=== PATIENT | female | born 1955 | race Caucasian/White ===

== ENCOUNTER 2016-09-28 11:12 | Inpatient (IN) | payer SELFPAY ==
[2016-09-28] MEDS ORDERED: ACETAMINOPHEN 325 MG TABLET PO ONE (11:39)
--- OUTSIDE RECORDS SUMMARY | 2016-09-28 11:45 | XMS REPORT | Continuity of Care Document ---
:1955 Demographics Phone Unavailable Preferred Language Unknown Marital Status Unknown Uatsdin Affiliation Unknown Race Unknown Ethnic Group Unknown Author Organization [facility] ([facility]) [place] [address] Phone [phone] Care Team Providers Name Role Phone Unavailable Primary Care Provider Unavailable Source Comments This disclosure is being made pursuant to the Care Everywhere program, applicable federal and state laws, and may not contain all informaitonavailable regarding this patient.[facility] ([facility]) Active Allergies and Adverse Reactions Not on File Current Medications Not on file Active Problems Not on file Most Recent Encounters Date Type Specialty Providers Description 09/20/2016 Lab Requisition Pathology [facility], [facility] [place] Dx: Basal cell carcinoma of skin of left upper limb, including shoulder 08/09/2016 Lab Requisition Pathology [facility], [facility] Dx: Neoplasm of uncertain behavior of skin Social History Tobacco Use Types Packs/Day Years Used Date Never Assessed Plan of Care Health Maintenance Due Date Last Done Comments HCV Screening 1955 Hepatitis B Vaccine (1 of 3 - Primary Series) 1955 Tdap Vaccine 1967 Lipid Disorder Screening 1974 MMR Vaccine 1974 Td Vaccine 1974 Pneumococcal Vaccine (1 of 3 - PCV13) 1975 Cervical Cancer Screening 1986 Mammogram 1996 Colonoscopy 2006 Zoster Vaccine 2016 Influenza Vaccine: Seasonal (Season Ended) 2016 Results from Last 3 Months DERMATOPATHOLOGY EXAM (09/18/2016 11:07 AM)Only the most recent of2 resultswithin the time period is included. Component Value Range Case Report Surgical Pathology Case: [id number] Authorizing Provider:[facility], [facility] Collected: 09/18/2016 11:07 AM Pathologist: Bettie Valdovinos MD Received:09/20/2016 01:57 PM Specimen:Skin, other, specify, Left lateral elbow Diagnosis Skin, left lateral elbow, excision: Scar and changes consistent with prior procedure. Residual basal cell carcinoma, margins uninvolved. I have personally reviewed this case and edited the report as necessary. Clinical Information Tissue source/site: A. Left lateral elbow. Pertinent clinical history and findings: A. 2 cm residual lesion s/p biopsy. Clinical differential diagnosis: A. BCC. Gross Description A.Received in formalin, in a container labeled Jovita Mcdonald V, date of , and "Left lateral elbow", is a 4.8 x 1.6 cm oriented , elliptical, cohen, wrinkled portion of skin excised to a depth o f 0.9 cm with a suture marked per the requisition "superior tip of specimen" and is redesignated 12 o'clock.There is a 1.2 x 1.0 cm irregular, cohen-white , moderately well healed previous surgical d efect located 2.0 cm from the 12 o'clock tip, 0.5 cm from the 3 o'clock margin, 2.1 cm from the 6 o'clock tip and 0.4 cm from the 9 o'clock margin. The specimen is differentially inked 12-3-6 o'clock blue and 6-9-12 o'clock orange.The specimen is serially sectioned from 12 o'clock to 6 o'clock to reveal smooth, cohen-white, fibrous cut surfaces. No discrete deep invasion is grossly identified. [employer] Press Operator sections are submitted as labeled: A1:Tips, 12 o'clock tip inked purple A2-A4:Central cross sections, sequentially submitted from 12 o'clock to 6 o'clock, to include the entire previous surgical defect ATC/rls Microscopic Description Sections show skin excision that demonstrates central epidermal attenuation overlying horizontal dermal fibrosis and scattered chronic inflammation.There is overlying erosion of the epidermis. The re is a proliferation of atypical basaloid epithelial cells with peripheral palisading extending into the dermis. Epidermal attachment is present. Margins are not involved. Performed by:Thania Younger MD, R4/rls Specimen Skin - Skin, other, specify
[2016-09-28 11:48] LABS: Hematocrit 35.1 % (37.0-47.0); Hemoglobin 12.4 gm/dL (12.5-16.0); Mean Cell Volume 87.3 fl (78-100); Mean Corpuscular Hemoglobin 30.8 pg (27-31); Mean Corpuscular Hgb Conc 35.3 g/dl (32-36); Mean Platelet Volume 8.9 fl (6.0-9.5); Platelet Count 214 K/mm3 (150-450); Red Blood Count 4.02 M/mm3 (4.2-5.4); Red Cell Distribution Width 13.2 % (11.5-14.0); White Blood Count 8.2 K/mm3 (4.0-10.5)
[2016-09-28 11:55] LABS: Total Cells Counted 100
[2016-09-28 12:02] LABS: Albumin * 3.5 gm/dl (3.4-5.0); Anion Gap 19.4 mmol/L (6.8-13.8); Bilirubin, Total 0.3 mg/dL (0.0-1.1); Ca. Corrected For Albumin 8.9 mg/dL (8.4-10.2); Calcium * 8.8 mg/dL (7.9-10.9); Carbon Dioxide 18.8 mmol/L (24-32.6); Potassium 4.2 mmol/L (3.4-4.6); Total Protein 7.1 gm/dL (6.2-8.2)
[2016-09-28] MEDS ORDERED: NORMAL SALINE 1,000 ML IV ONE ×2 (12:15→14:59)
[2016-09-28 12:34] LABS: Band 17 % (0-2.0); Lymphocyte 8 % (20-51); Monocyte 3 % (0-9); Neutrophil 72 % (42-75); Neutrophil # 5.9 K/mm3 (1.3-6.0); Platelet Estimate Normal (NORMAL); RBC Morphology Normal (NORMAL)
--- OUTSIDE RECORDS SUMMARY | 2016-09-28 12:53 | XMS REPORT | Continuity of Care Document ---
:1955 Demographics Phone Unavailable Preferred Language Unknown Marital Status Unknown Orthodox Affiliation Unknown Race Unknown Ethnic Group Unknown Author Organization [facility] ([facility]) [place] [address] Phone [phone] Care Team Providers Name Role Phone Unavailable Primary Care Provider Unavailable Source Comments This disclosure is being made pursuant to the Care Everywhere program, applicable federal and state laws, and may not contain all informaitonavailable regarding this patient.[facility] ([facility]) Active Allergies and Adverse Reactions Not on File Current Medications Not on file Active Problems Not on file Most Recent Encounters Date Type Specialty Providers Description 09/20/2016 Lab Requisition Pathology Lab Services, [facility] Dx: Basal cell carcinoma of skin of left upper limb, including shoulder 08/09/2016 Lab Requisition Pathology Lab Services, [facility] Dx: Neoplasm of uncertain behavior of skin [...] Value Range Case Report Surgical Pathology Case: [id number] Authorizing Provider:Lab Services, [facility] Collected: 09/18/2016 11:07 AM Pathologist: Bettie Valdovinos [...] No discrete deep invasion is grossly identified. [employer]otive Parts Counter Assistant sections are submitted as labeled: A1:Tips, 12 [...]
--- NOTE | 2016-09-28 12:55 | ERNOTE ---
Medical Problem HPI - General Chief Complaint: Fever Time Seen by Provider: 09/28/16 11:35 Source: patient Exam Limitations: no limitations - Immun/Allergies/Home Medications Immunizations: IMMUNIZATION HX Immunizations Up to Date Yes History of Influenza Vaccine No Hx Pneumococcal Vaccination No Allergies/Adverse Reactions: Allergies No Known Allergies Allergy (Unverified 03/06/15 13:33) Home Medications: HOME MEDICATIONS Lisinopril [Zestril] 10 mg PO DAILY 03/06/15 [Last Taken Unknown] Simvastatin [Zocor] 20 mg PO HS 03/06/15 [Last Taken Unknown] - History of Present History Narrative: patient states she has had a fever and not feeling well. Denies any sore throat , cough or dysuria, only high fevers as high as 105 at home for two days She recently had a neoplasm removed from her left forearm on September 18, 2016. Review of Systems - Review of Systems Constitutional: Present: weakness, fatigue, malaise EYE: Present: no symptoms reported ENT: Present: no symptoms reported Respiratory: Present: no symptoms reported Cardiology: Present: no symptoms reported Gastrointestinal/Abdominal: Present: no symptoms reported Genitourinary: Present: no symptoms reported Musculoskeletal: Present: no symptoms reported Skin: Present: other - pt complains of itching Neurological: Present: no symptoms reported Endocrine: Present: no symptoms reported - Patient's Past Medical History Patient History - Medical: No pertinent hx Patient History - Cardiac/Respiratory: No pertinent hx Patient History - Cancer: Skin Patient History - Surgical Procedures: Other Patient History - Other: None - Social History Living Situations: alone Abuse History: No History of abuse Psych History: No pertinent hx Smoking Status: Never smoker Have you smoked in the past 12 months: No Alcohol Use: none Drug Use: none - Immunizations Immunizations Up to Date: Yes Hx Pneumococcal Vaccination: No History of Influenza Vaccine: No Physical Exam - Physical Exam General Appearance: Present: alert, other - pt appears tired and fatigued and dehydrated with dry mouth. Ears, Nose, Throat: Present: normal pharynx, dry mucous membranes Neck: Present: normal inspection, nontender, full range of motion Respiratory: Present: no respiratory distress, normal breath sounds, no accessory muscle use, chest nontender, lungs clear Cardiovascular/Chest: Present: regular rate, rhythm, no murmur, normal peripheral pulses Gastrointestinal/Abdominal: Present: normal bowel sounds, nontender, nondistended, soft, no organomegaly Back Exam: Present: normal inspection, normal range of motion Extremity Exam: Present: normal inspection, non-tender, normal range of motion, no edema Neurological Exam: Present: alert, oriented, normal mood/affect, no motor/ sensory deficits Skin Exam: Present: other - pt's skin appears red but she does have a fever ED Progress - Results and Orders Patient's Lab Results:: I have reviewed the patient's lab results. - Vital Signs Patient's Vital Signs:: I have reviewed the patient's vital signs. Vital Signs: Vital Signs 09/28/16 09/28/16 09/28/16 11:25 12:00 12:30 Temperature 38.3 C H 37.7 C H 36.6 C Pulse Rate 129 H 123 H 109 H Respiratory 24 H 16 16 Rate Blood Pressure 99/49 97/48 112/67 O2 Sat by Pulse 97 98 95 Oximetry - X-Ray X-Ray #1 X-Ray: chest - Progress/Reassessment Chief Complaint: Fever Plan - Plan Plan: pt's Lactate is 4.3, this patient needs to be admitted for sepsis and investigated and monitored, CXR does not show any acute pulmonary findings Departure - Departure Clinical Impression: Sepsis Qualifiers: Sepsis type: sepsis due to unspecified organism Qualified Code(s): A41.9 - Sepsis, unspecified organism Disposition: [facility] Condition: Fair
[2016-09-28] MEDS ORDERED: LEVOFLOXACIN/D5W 500 MG/100 ML BAG IV SCH (13:00)
[2016-09-28 13:02] LABS: Urine Bilirubin 1 mg/dl (NEGATIVE); Urine Ketone Negative (NEGATIVE); Urine Nitrite Negative (NEGATIVE); Urine Protein 30 mg/dL (NEGATIVE); Urine Specific Gravity 1.025 SP.GR. (1.005-1.010); Urine Urobilinogen Normal (NORMAL)
[2016-09-28 13:25] LABS: Urine Appearance Slightly Cloudy; Urine Blood 5 /ul (NEGATIVE); Urine Color Yellow
[2016-09-28 13:26] LABS: Urine Amorphous Sediment Moderate - 2+ (NONE-FEW); Urine Bacteria TRACE; Urine Hyaline Cast 0-5 /LPF; Urine WBC 0-5 /hpf (0-5)
[2016-09-28] MEDS ORDERED: ACETAMINOPHEN 325 MG TABLET PO PRN (14:33)
[2016-09-28] MEDS ORDERED: PIPERACILLIN SODIUM/TAZOBACTAM 2.25 GM VIAL IV SCH (15:15)
--- NOTE | 2016-09-28 15:24 | HP ---
Chief Complaint - Chief Complaint Date of Service: 09/28/16 Time of Service: 15:09 Chief Complaint: Fever of 105F History of Present Illness: The patient is a 61-year-old female who presents to the [facility] emergency department with a chief complaint of fever and states that her temperature was 105F this morning prior to coming to the emergency department. The emergency department physician called me to admit the patient for "sepsis with an unknown source" and stated that she did not feel the patient's presentation was at all related to her recent skin cancer removal from her left forearm. However, within seconds of interviewing the patient and her family, it was quite obvious that the patient has sepsis secondary to a left upper extremity surgical site infection. The patient had excision of a skin cancer from her left forearm on 09/19/2015 by [facility]. The patient is unsure what type of skin cancer it was. The patient had a postoperative follow-up appointment with Jenn Schafer on 09/22/2016. The patient states that at that visit there was concern for infection and she was started on Bactrim. The patient had another postoperative follow-up appointment with Jenn Schafer yesterday on 09/27/2016 and at that point in time she was given a prescription for Keflex and instructed to continue taking the Bactrim along with the new prescription for Keflex. The patient states she had not yet picked up Keflex and thus has not taken any doses of this medication. She has however remained on Bactrim. The patient states that since surgery she has had intermittent and varying degrees of redness as well as drainage from the surgical site. Despite being on oral antibiotics, the patient states she started having fevers approximately 2 days ago and then when her temperature reached 105F this morning she decided to come to the emergency department for further evaluation. - Patient's Past Medical History Patient History - Medical: Other - Psoriasis Patient History - Cardiac/Respiratory: Hypertension, Hyperlipidemia Patient History - Cancer: Skin Patient History - Surgical Procedures: Other Patient History - Other: None - Family History Father Family History - Medical: Family History - Cardiac/Respiratory: Myocardial Infarction - [place] at age 75 Mother Family History - Medical: Alzheimer's Disease Family History - Cardiac/Respiratory: Hypertension - Social History Living Situations: alone Abuse History: No History of abuse Psych History: No pertinent hx Smoking Status: Never smoker Have you smoked in the past 12 months: No Do you dip or chew tobacco: No Patient requests Smoking Cessation Consult: No Initiate information on Smoking Cessation: No Alcohol Use: none Drug Use: none - Immunizations Immunizations Up to Date: Yes Hx Pneumococcal Vaccination: No History of Influenza Vaccine: No Review Of Systems (GEN) - Review of Systems Generalized/Overall Review: Present: Weakness, Chills, Fever, Malaise, Diaphoresis, Fatigue EENTM: Present: No Symptoms Reported Respiratory: Present: No Symptoms Reported Cardiac: Present: No Symptoms Reported Abdominal: Present: No Symptoms Reported Genitourinary: Present: No Symptoms Reported Musculoskeletal: Present: No Symptoms Reported Neurological: Present: No Symptoms Reported Skin: Present: Change in Color, Other - Bright red skin, swelling and redness over left arm, generalized itching Endocrine: Present: No Symptoms Reported Misc: All systems neg except as marked Immunizations: IMMUNIZATION HX Immunizations Up to Date Yes History of Influenza Vaccine No Hx Pneumococcal Vaccination No Allergies/Adverse Reactions: Allergies Allergy/AdvReac Type Severity Reaction Status Date / Time No Known Allergies Allergy Unverified 03/06/15 13:33 Home Medications: HOME MEDICATIONS Simvastatin [Zocor] 20 mg PO HS 03/06/15 [Last Taken Unknown] Lisinopril [Prinivil] 20 mg PO DAILY 09/28/16 [Last Taken Unknown] Exam - Exam Vital Signs: Vital Signs - Last Taken Temp 36.6 C 09/28/16 13:59 Pulse 105 H 09/28/16 13:59 Resp 16 09/28/16 13:59 BP 109/49 09/28/16 13:59 Pulse Ox 99 09/28/16 13:59 Constitutional: Present: Alert, Oriented x3, Cooperative, Mild distress - Appears uncomfortable, Obese ENT Exam: Present: hearing grossly normal, dry mucous membranes Eye Exam: bilateral eye: normal inspection, EOMI Respiratory: Present: lungs clear, normal breath sounds, no respiratory distress , no accessory muscle use Cardiovascular/Chest: Present: no edema, tachycardia Abdomen: Present: Normal bowel sounds, soft, nontender, nondistended Extremity: Present: normal range of motion, normal inspection - other than left UE which is described in the skin exam section, no pedal edema Skin Exam: Present: warm/dry, other - Diffuse redness and increased warmth. Left UE: s/p skin cancer removal to the dorsal aspect of forearm with sutures in place, arm is edematous with errythema, no active drainage Lymphatic: Present: axilla node tender (L) Neurologic: Present: no motor/sensory deficits, alert, normal mood/affect, oriented x 3 Appearance: Present: appropriate appearance, appropriate insight, neat, no memory impairment Eye contact: Present: cooperative, good eye contact, normal speech Thoughts: Present: normal thought pattern, no apparent hallucination Diagnostic Studies: Abnormal Lab Results 09/28/16 Range/Units 12:50 Urine Protein 30 H (NEGATIVE) mg/dL Urine Blood 5 H (NEGATIVE) /ul Urine Bilirubin 1 H (NEGATIVE) mg/dl Urine RBC 5-10 H (0-5) /hpf Ur Epithelial Cells 10-25 H (0-5) /hpf Amorphous Sediment Moderate - 2+ H (NONE-FEW) Hyaline Casts 0-5 H (NONE) /LPF Laboratory Results WBC 8.2 K/mm3 (4.0-10.5) 09/28/16 11:45 RBC 4.02 M/mm3 (4.2-5.4) L 09/28/16 11:45 Hgb 12.4 gm/dL (12.5-16.0) L 09/28/16 11:45 Hct 35.1 % (37.0-47.0) L 09/28/16 11:45 MCV 87.3 fl (78-100) 09/28/16 11:45 MCH 30.8 pg (27-31) 09/28/16 11:45 MCHC 35.3 g/dl (32-36) 09/28/16 11:45 RDW 13.2 % (11.5-14.0) 09/28/16 11:45 Plt Count 214 K/mm3 (150-450) 09/28/16 11:45 MPV 8.9 fl (6.0-9.5) 09/28/16 11:45 Neutrophils % (Manual) 72 % (42-75) 09/28/16 11:45 Band Neuts % (Manual) 17 % (0-2.0) H 09/28/16 11:45 Lymphocytes % (Manual) 8 % (20-51) L 09/28/16 11:45 Monocytes % (Manual) 3 % (0-9) 09/28/16 11:45 Neutrophils # (Manual) 5.9 K/mm3 (1.3-6.0) 09/28/16 11:45 Lymphocytes # (Manual) 0.7 k/mm3 (1.5-3.5) L 09/28/16 11:45 Monocytes # (Manual) 0.2 k/mm3 (0.0-1.0) 09/28/16 11:45 Platelet Estimate Normal (NORMAL) 09/28/16 11:45 RBC Morphology Normal (NORMAL) 09/28/16 11:45 Sodium 135 mmol/L (132-142) 09/28/16 11:45 Plasma Sodium 136 mmol/L (130-142) 09/28/16 11:45 Potassium 4.2 mmol/L (3.4-4.6) 09/28/16 11:45 Chloride 101 mmol/L (97-106) 09/28/16 11:45 Carbon Dioxide 18.8 mmol/L (24-32.6) L 09/28/16 11:45 Anion Gap 19.4 mmol/L (6.8-13.8) H 09/28/16 11:45 BUN 27 mg/dL (3-23) H D 09/28/16 11:45 Creatinine 2.71 mg/dL (0.4-1.4) H D 09/28/16 11:45 Est GFR (Non-Af Amer) 19 mL/min (60-130) L D 09/28/16 11:45 BUN/Creatinine Ratio 10.0 (9.0-21.6) 09/28/16 11:45 Random Glucose 169 mg/dL (70-110) H 09/28/16 11:45 Lactic Acid, Venous 4.3 mmol/L (0.4-1.9) H* 09/28/16 11:45 Calcium 8.8 mg/dL (7.9-10.9) 09/28/16 11:45 Calcium Adj for Albumin 8.9 mg/dL (8.4-10.2) 09/28/16 11:45 Total Bilirubin 0.3 mg/dL (0.0-1.1) 09/28/16 11:45 AST 41 U/L (0-48) 09/28/16 11:45 ALT 62 U/L (19-67) 09/28/16 11:45 Alkaline Phosphatase 67 U/L (50-170) 09/28/16 11:45 Total Protein 7.1 gm/dL (6.2-8.2) 09/28/16 11:45 Albumin 3.5 gm/dl (3.4-5.0) 09/28/16 11:45 Procalcitonin 4.00 ng/mL (0.05-0.50) H 09/28/16 11:45 Urine Color Yellow 09/28/16 12:50 Urine Appearance Slightly cloudy 09/28/16 12:50 Urine pH 6.0 pH (5.0-7.0) 09/28/16 12:50 Ur Specific [place] 1.025 SP.GR. (1.005-1.010) 09/28/16 12:50 Urine Protein 30 mg/dL (NEGATIVE) H 09/28/16 12:50 Urine Glucose (UA) Negative mg/dL (NEGATIVE) 09/28/16 12:50 Urine Ketones Negative mg/dL (NEGATIVE) 09/28/16 12:50 Urine Blood 5 /ul (NEGATIVE) H 09/28/16 12:50 Urine Nitrate Negative (NEGATIVE) 09/28/16 12:50 Urine Bilirubin 1 mg/dl (NEGATIVE) H 09/28/16 12:50 Urine Ictotest Negative (NEGATIVE) 09/28/16 12:50 Prot Sulfosalicylic Acd 1+ mg/dL (0) 09/28/16 12:50 Urine Urobilinogen Normal EU/dl (NORMAL) 09/28/16 12:50 Ur Leukocyte Esterase Negative /ul (NEGATIVE) 09/28/16 12:50 Urine RBC 5-10 /hpf (0-5) H 09/28/16 12:50 Urine WBC 0-5 /hpf (0-5) 09/28/16 12:50 Ur Epithelial Cells 10-25 /hpf (0-5) H 09/28/16 12:50 Amorphous Sediment Moderate - 2+ (NONE-FEW) H 09/28/16 12:50 Urine Bacteria Trace (NONE) 09/28/16 12:50 Hyaline Casts 0-5 /LPF (NONE) H 09/28/16 12:50 Urine Culture Comments Culture to follow 09/28/16 12:50 Assessment/Plan - Narrative Narrative: IMPRESSION & PLAN: Sepsis secondary to left forearm surgical site infection -Admit to [facility], inpatient status -Hypotension and tachycardia on admission secondary to sepsis -Bolus 3 L of NS followed by NS @ 150cc/hr -Discontinue IV Levaquin which was started in the emergency department. Start IV vancomycin and IV Zosyn, both of which will be renally dosed and I have asked pharmacy to manage dosing of these antibiotics. -Tylenol for fevers -Benadryl for generalized itching -No active drainage at the surgical site at this time. Order placed for a wound culture and I discussed with the patients nurse that if there is any drainage noted to please have this sent to lab for culture. -Blood cultures X 2 pending -I will ask our nurse practitioner car body mechanic to complete a 6 hour follow-up sepsis evaluation. -Case discussed with Jenn Schafer from [facility]. Unfortunately, Dr[place] Romero [place] and therefore they are not doing any inpatient consults at this time. -If patient fails to improve with plan as above, I will get a CT of her left upper extremity for evaluation of possible abscess. -UA completed in the emergency department is contaminated as evidenced by 10- 25 epithelial cells. Lab was called and instructed that there is no urine culture necessary. Acute kidney injury -Secondary to sepsis -Continue IV fluids as discussed above -Recheck BMP in the morning -Renally dose all medications and avoid nephrotoxic medications as able. -Hold home Lisinopril Hyperlactatemia -Secondary to hypoperfusion due to sepsis. Follow-up lactic acid level still elevated but improved from the first. Continue IV fluid as discussed above and recheck a lactic acid level in the morning. CHRONIC MEDICAL CONDITIONS: Essential hypertension: Patient hypotensive and an ANDERSON on admission and therefore her lisinopril is being held. Hyperlipidemia: Continue home simvastatin. VTE PROPHYLAXIS: Heparin (due to ANDERSON), compression stockings CODE STATUS: Full code
[2016-09-28] MEDS: diphenhydrAMINE HCL 50 MG/ML VIAL IV PRN ×2 (15:26→20:34)
[2016-09-28] MEDS ORDERED: PIPERACILLIN SODIUM/TAZOBACTAM 2.25 GM in DEXTROSE 5 % IN WATER 100 ML IV SCH ×2 (15:30)
[2016-09-28] MEDS: HEPARIN SODIUM,PORCINE 5,000 UNITS/ML VIAL SC SCH (15:43)
[2016-09-28] MEDS: PIPERACILLIN SODIUM/TAZOBACTAM 2.25 GM in DEXTROSE 5 % IN WATER 100 ML IV SCH ×4 (15:44→22:43)
[2016-09-28] MEDS ORDERED: VANCOMYCIN HCL 1 GM in DEXTROSE 5 % IN WATER 250 ML IV SCH ×2 (16:30)
[2016-09-28] MEDS: NORMAL SALINE 1,000 ML IV PRN ×2 (18:11→23:49)
[2016-09-28] MEDS: SIMVASTATIN 20 MG TABLET PO SCH (20:30)
--- NOTE | 2016-09-28 21:34 | PN ---
Progess Note - Interim Narrative: 09/28/16 21:16 Pt examined. She is alert, oriented & in no distress but was starting to develop chills. The patient came to the [facility] ER with a C/C of fever as high as 105F the morning on day of presentation to the ED. She was found to have Sepsis secondary to a left upper extremity surgical site infection. The patient had excision of a skin cancer from her left forearm on 09/19/2015 by [facility]. The patient is unsure what type of skin cancer it was. The patient had a postoperative follow-up appointment with Jenn Schafer on 2016 and was started on Bactrim on that visit as there was concern for infection. She had another postoperative follow-up appointment with Jenn Schafer 09/27/2016 and she was given a prescription for Keflex and instructed to continue taking the Bactrim along with the new prescription for Keflex. On admission, she was treated according to sepsis protocol: Aggresive IVF hydration , Broad Spectrum antibiotics ( Vancomycin & Zosyn) Serum Lactate monitoring. 09/28/16 09/28/16 11:45 14:50 Lactic Acid, Venous 4.3 H* 2.2 H* Sepsis Reassessment Note Time:: 21:15 Narrative: Last Vital Signs Temp 36.9 C 09/28/16 19:47 Pulse 107 H 09/28/16 19:47 Resp 16 09/28/16 19:47 BP 104/55 09/28/16 19:47 Pulse Ox 97 09/28/16 19:47 Vitals reviewed: Yes Heart Sounds: S1 & S2, Regular Breath Sounds: Clear Peripheral Pulse: Radial Peripheral Pulse Strength: Normal Additional Peripheral Pulse: Pedal Additional Peripheral Pulse Strength: Normal Capillary Refill: < 3 seconds Skin Color/Condition: Warm - Flushed, Dry
[2016-09-28] MEDS: ACETAMINOPHEN 500 MG TABLET PO PRN (22:42)
[2016-09-29] MEDS: HEPARIN SODIUM,PORCINE 5,000 UNITS/ML VIAL SC SCH ×2 (03:03→14:57)
[2016-09-29 05:46] LABS: Hematocrit 30.4 % (37.0-47.0); Hemoglobin 10.8 gm/dL (12.5-16.0); Mean Cell Volume 87.1 fl (78-100); Mean Corpuscular Hemoglobin 30.9 pg (27-31); Mean Corpuscular Hgb Conc 35.5 g/dl (32-36); Mean Platelet Volume 9.2 fl (6.0-9.5); Platelet Count 167 K/mm3 (150-450); Red Blood Count 3.49 M/mm3 (4.2-5.4); Red Cell Distribution Width 13.3 % (11.5-14.0); White Blood Count 5.6 K/mm3 (4.0-10.5)
[2016-09-29 05:47] LABS: Total Cells Counted 100
[2016-09-29 06:05] LABS: Anion Gap 16.4 mmol/L (6.8-13.8); Calcium * 7.1 mg/dL (7.9-10.9); Carbon Dioxide 18.5 mmol/L (24-32.6); Estimated Creat Clear 40.5; Potassium 3.9 mmol/L (3.4-4.6)
[2016-09-29 06:06] LABS: Band 29 % (0-2.0); Dohle Bodies 2+; Eosinophil 1 % (0-3); Lymphocyte 8 % (20-51); Monocyte 1 % (0-9); Neutrophil 60 % (42-75); Neutrophil # 3.4 K/mm3 (1.3-6.0); Platelet Estimate Normal (NORMAL); Toxic Granulation Trace
[2016-09-29] MEDS: NORMAL SALINE 1,000 ML IV PRN ×3 (06:32→20:20)
[2016-09-29] MEDS: PIPERACILLIN SODIUM/TAZOBACTAM 2.25 GM in DEXTROSE 5 % IN WATER 100 ML IV SCH ×2 (06:33)
[2016-09-29] MEDS: diphenhydrAMINE HCL 50 MG/ML VIAL IV PRN ×2 (06:53→14:57)
[2016-09-29] MEDS: VANCOMYCIN HCL 0.75 GM in DEXTROSE 5 % IN WATER 250 ML IV SCH ×4 (10:40→20:30)
[2016-09-29] MEDS: ACETAMINOPHEN 500 MG TABLET PO PRN (14:57)
[2016-09-29] MEDS: PIPERACILLIN SODIUM/TAZOBACTAM 3.375 GM in DEXTROSE 5 % IN WATER 100 ML IV SCH ×4 (14:57→22:38)
--- NOTE | 2016-09-29 15:02 | PN ---
Subjective - Date and Time Seen Date: 09/29/16 Time: 08:20 Subjective Narrative: Patient seen and examined at bedside this AM. No acute issues overnight. Patient admits to feeling better this AM. Still somewhat itchy and red skin but improving. Objective - Review of Systems Generalized/Overall Review: Reports: Weakness, Chills, Fever, Malaise, Diaphoresis, Fatigue EENTM: Reports: No Symptoms Reported Respiratory: Reports: No Symptoms Reported Cardiac: Reports: No Symptoms Reported Abdominal: Reports: No Symptoms Reported Genitourinary Symptoms: Reports: No Symptoms Reported Musculoskeletal Complaints: Reports: No Symptoms Reported Neurological: Reports: No Symptoms Reported Skin: Reports: Other - Red skin, swelling and redness over left arm, generalized skin itching Endocrine: Reports: No Symptoms Reported Misc: All systems neg except as marked - Vitals Vitals: Last Vital Signs Temp 36.7 C 09/29/16 10:35 Pulse 117 H 09/29/16 10:35 Resp 20 09/29/16 10:35 BP 103/57 09/29/16 10:35 Pulse Ox 96 09/29/16 10:35 - Abnormal Lab Findings Abnormal Lab Findings: Abnormal Lab Results 09/28/16 09/29/16 09/29/16 Range/Units 14:50 05:40 05:40 RBC 3.49 L (4.2-5.4) M/mm3 Hgb 10.8 L (12.5-16.0) gm/dL Hct 30.4 L (37.0-47.0) % Band Neuts % (Manual) 29 H (0-2.0) % Lymphocytes % (Manual) 8 L (20-51) % Lymphocytes # (Manual) 0.4 L (1.5-3.5) k/mm3 Carbon Dioxide 18.5 L (24-32.6) mmol/L Anion Gap 16.4 H (6.8-13.8) mmol/L Est GFR (Non-Af Amer) 43 L D (60-130) mL/min Lactic Acid, Venous 2.2 H* (0.4-1.9) mmol/L Calcium 7.1 L (7.9-10.9) mg/dL - Exam Constitutional: Present: Alert, Oriented x3, Cooperative, No distress, Middle aged, Obese ENT Exam: Present: hearing grossly normal, moist mucous membranes, other - Edentulous Respiratory: Present: lungs clear, normal breath sounds, no respiratory distress , no accessory muscle use Cardiovascular/Chest: Present: regular rate, rhythm, no edema Abdomen: Present: Normal bowel sounds, soft, nontender, nondistended Extremity: Present: non-tender, normal inspection - except left arm, no pedal edema Skin Exam: Present: other - Diffuse redness (improved from admission) and increased warmth. Left UE: s/p skin cancer removal to the dorsal aspect of forearm with sutures in place, arm is edematous with errythema, no active drainage Lymphatic: Present: axilla node tender (L) Neurologic: Present: no motor/sensory deficits, alert, normal mood/affect, oriented x 3 Appearance: Present: appropriate appearance, appropriate insight, neat, no memory impairment Eye contact: Present: cooperative, good eye contact, normal speech Thoughts: Present: normal thought pattern, no apparent hallucination Assessment/Plan Plan Narrative: IMPRESSION & PLAN: Sepsis secondary to left forearm surgical site infection -Admit to [facility], inpatient status -Hypotension and tachycardia on admission secondary to sepsis -Patient bolused 3 L of NS on admission. Continue IVF hydration with NS @ 75 -Continue IV vancomycin and IV Zosyn, both of which will be renally dosed and I have asked pharmacy to manage dosing of these antibiotics. -Tylenol for fevers -Benadryl for generalized itching -No active drainage at the surgical site at this time. Order placed for a wound culture and I discussed with the patients nurse that if there is any drainage noted to please have this sent to lab for culture. -Blood cultures X 2 preliminary report NGTD -Case discussed with Jenn Schafer from [facility]. Unfortunately, Dr[place] Romero [place] and therefore they are not doing any inpatient consults at this time. -If patient fails to improve with plan as above, I will get a CT of her left upper extremity for evaluation of possible abscess. -UA completed in the emergency department is contaminated as evidenced by 10- 25 epithelial cells. Lab was called and instructed that there is no urine culture necessary. Acute kidney injury - Resolved -Secondary to sepsis -Continue IV fluids as discussed above -Recheck BMP in the morning -Renally dose all medications and avoid nephrotoxic medications as able. -Hold home Lisinopril Hyperlactatemia -Resolved -Secondary to hypoperfusion due to sepsis. CHRONIC MEDICAL CONDITIONS: Essential hypertension: Patient hypotensive and in ANDERSON on admission and therefore her lisinopril was held. Continue to hold for now and resume if and when necessary. Hyperlipidemia: Continue home simvastatin. VTE PROPHYLAXIS: Patient treated with heparin (due to ANDERSON) on admission and once ANDERSON resolved the patient was transitioned to lovenox on 09/30/2016, compression stockings CODE STATUS: Full code DISPOSITION: Patient will likely remain on IV antibiotics over the weekend and we will hopefully be able to switch to PO on Sunday. Potential discharge early next week. - Problems/Diagnosis (1) Sepsis due to cellulitis Problem: Acute (2) Superficial incisional surgical site infection Problem: Acute (3) Deep incisional surgical site infection Problem: Suspected Narrative: Possible (4) Acute kidney injury Problem: Resolved (5) Essential hypertension Problem: Chronic (6) Hyperlipidemia Problem: Chronic
[2016-09-29] MEDS: SIMVASTATIN 20 MG TABLET PO SCH (20:21)
[2016-09-30 05:43] LABS: Hemoglobin 10.4 gm/dL (12.5-16.0); Mean Cell Volume 86.6 fl (78-100); Mean Corpuscular Hgb Conc 35.9 g/dl (32-36); Mean Platelet Volume 9.2 fl (6.0-9.5); Platelet Count 161 K/mm3 (150-450); Red Blood Count 3.35 M/mm3 (4.2-5.4); Red Cell Distribution Width 13.5 % (11.5-14.0); White Blood Count 6.8 K/mm3 (4.0-10.5)
[2016-09-30 05:45] LABS: Total Cells Counted 100
[2016-09-30 05:51] LABS: Anion Gap 11.9 mmol/L (6.8-13.8); BUN/Creatinine Ratio 12.2 (9.0-21.6); Calcium * 7.4 mg/dL (7.9-10.9); Carbon Dioxide 21.8 mmol/L (24-32.6); Estimated Creat Clear 59.8; Potassium 3.7 mmol/L (3.4-4.6)
[2016-09-30 05:59] LABS: Band 3 % (0-2.0); Lymphocyte 14 % (20-51); Monocyte 3 % (0-9); Neutrophil 80 % (42-75); Neutrophil # 5.4 K/mm3 (1.3-6.0); Platelet Estimate Normal (NORMAL); RBC Morphology Normal (NORMAL)
[2016-09-30] MEDS: PIPERACILLIN SODIUM/TAZOBACTAM 3.375 GM in DEXTROSE 5 % IN WATER 100 ML IV SCH ×6 (07:24→23:04)
[2016-09-30] MEDS: ENOXAPARIN SODIUM 40 MG/0.4 ML SYRG SC SCH (08:17)
[2016-09-30] MEDS: NORMAL SALINE 1,000 ML IV PRN (09:45)
[2016-09-30] MEDS: LACTOBACILLUS ACIDOPHILUS 100 CAP BTL PO SCH ×2 (09:58→20:31)
[2016-09-30] MEDS: VANCOMYCIN HCL 0.75 GM in DEXTROSE 5 % IN WATER 250 ML IV SCH ×4 (09:59→20:31)
--- NOTE | 2016-09-30 10:09 | PN ---
Subjective - Date and Time Seen Date: 09/30/16 Time: 10:02 Subjective Narrative: Patient seen and examined at bedside this AM. No acute issues overnight. Patient admits to feeling better this AM. Skin redness and itching markedly improved. Objective - Review of Systems Generalized/Overall Review: Reports: Chills, Fatigue. Denies: Fever EENTM: Reports: No Symptoms Reported Respiratory: Reports: No Symptoms Reported Cardiac: Reports: No Symptoms Reported Abdominal: Reports: No Symptoms Reported Genitourinary Symptoms: Reports: No Symptoms Reported Musculoskeletal Complaints: Reports: No Symptoms Reported Neurological: Reports: No Symptoms Reported Skin: Reports: Other - Swelling and pain improving in left arm Endocrine: Reports: No Symptoms Reported Misc: All systems neg except as marked - Vitals Vitals: Last Vital Signs Temp 37.1 C 09/30/16 06:50 Pulse 82 09/30/16 06:50 Resp 20 09/30/16 06:50 BP 98/57 09/30/16 06:50 Pulse Ox 97 09/30/16 06:50 - Abnormal Lab Findings Abnormal Lab Findings: Abnormal Lab Results 09/30/16 09/30/16 Range/Units 05:25 05:25 RBC 3.35 L (4.2-5.4) M/mm3 Hgb 10.4 L (12.5-16.0) gm/dL Hct 29.0 L (37.0-47.0) % Neutrophils % (Manual) 80 H (42-75) % Band Neuts % (Manual) 3 H (0-2.0) % Lymphocytes % (Manual) 14 L (20-51) % Lymphocytes # (Manual) 1.0 L (1.5-3.5) k/mm3 Chloride 109 H (97-106) mmol/L Carbon Dioxide 21.8 L (24-32.6) mmol/L Calcium 7.4 L (7.9-10.9) mg/dL - Exam Constitutional: Present: Alert, Oriented x3, Cooperative, No distress, Obese ENT Exam: Present: hearing grossly normal, moist mucous membranes, other - Edentulous Respiratory: Present: lungs clear, normal breath sounds, no respiratory distress , no accessory muscle use Cardiovascular/Chest: Present: regular rate, rhythm, no edema, no murmur Abdomen: Present: Normal bowel sounds, soft, nontender, nondistended Extremity: Present: normal inspection - except left upper extremity, no pedal edema Skin Exam: Present: other - Left upper extremity: s/p skin cancer removal to the dorsal aspect of forearm with sutures in place, edema and errythema markedly improved since admission, no active drainage Neurologic: Present: no motor/sensory deficits, alert, normal mood/affect, oriented x 3 Appearance: Present: appropriate appearance, neat, no memory impairment Eye contact: Present: cooperative Thoughts: Present: normal thought pattern, no apparent hallucination Assessment/Plan Plan Narrative: IMPRESSION & PLAN: Sepsis secondary to left forearm surgical site infection -Admit to [facility], inpatient status -Hypotension and tachycardia on admission secondary to sepsis -Patient bolused 3 L of NS on admission. Continue IVF hydration with NS @ 75 -Continue IV vancomycin and IV Zosyn, both of which will be renally dosed and I have asked pharmacy to manage dosing of these antibiotics. -Tylenol for fevers -Benadryl for generalized itching -No active drainage at the surgical site at this time. Order placed for a wound culture and I discussed with the patients nurse that if there is any drainage noted to please have this sent to lab for culture. -Blood cultures X 2 preliminary report NGTD -Case discussed with Jenn Schafer from [facility]. Unfortunately, Dr. Romero is out of the country and therefore they are not doing any inpatient consults at this time. -If patient fails to improve with plan as above, I will get a CT of her left upper extremity for evaluation of possible abscess. -UA completed in the emergency department is contaminated as evidenced by 10- 25 epithelial cells. Lab was called and instructed that there is no urine culture necessary. Acute kidney injury - Resolved -Secondary to sepsis -Continue IV fluids as discussed above -Recheck BMP in the morning -Renally dose all medications and avoid nephrotoxic medications as able. -Hold home Lisinopril Hyperlactatemia -Resolved -Secondary to hypoperfusion due to sepsis. CHRONIC MEDICAL CONDITIONS: Essential hypertension: Patient hypotensive and in ANDERSON on admission and therefore her lisinopril was held. Continue to hold for now and resume if and when necessary. Hyperlipidemia: Continue home simvastatin. VTE PROPHYLAXIS: Patient treated with heparin (due to ANDERSON) on admission and once ANDERSON resolved the patient was transitioned to lovenox on 09/30/2016, compression stockings CODE STATUS: Full code DISPOSITION: Patient will remain on IV antibiotics today and I will plan to switch to PO antibiotics tomorrow (10/01/2016) as long as the patient continues to have clinical improvement. Potential discharge on Sunday (10/02/2016). - Problems/Diagnosis (1) Sepsis due to cellulitis Problem: Acute (2) Superficial incisional surgical site infection Problem: Acute (3) Deep incisional surgical site infection Problem: Suspected (4) Acute kidney injury Problem: Resolved (5) Essential hypertension Problem: Chronic (6) Hyperlipidemia Problem: Chronic
[2016-09-30] MEDS: SIMVASTATIN 20 MG TABLET PO SCH (20:31)
[2016-10-01] MEDS: NORMAL SALINE 1,000 ML IV PRN (03:08)
[2016-10-01] MEDS: PIPERACILLIN SODIUM/TAZOBACTAM 3.375 GM in DEXTROSE 5 % IN WATER 100 ML IV SCH ×2 (07:19)
--- NOTE | 2016-10-01 08:04 | PN ---
Subjective - Date and Time Seen Date: 10/01/16 Time: 07:57 Subjective Narrative: Patient seen and examined at bedside this AM. No acute issues overnight. Patient continues to feel better each day. She denies any new issues or concerns this AM. Objective - Review of Systems Generalized/Overall Review: Reports: No Symptoms Reported EENTM: Reports: No Symptoms Reported Respiratory: Reports: No Symptoms Reported Cardiac: Reports: No Symptoms Reported Abdominal: Reports: No Symptoms Reported Genitourinary Symptoms: Reports: No Symptoms Reported Musculoskeletal Complaints: Reports: No Symptoms Reported Neurological: Reports: No Symptoms Reported Skin: Reports: Other - Left arm swelling, redness and pain all improving Endocrine: Reports: No Symptoms Reported Misc: All systems neg except as marked - Vitals Vitals: Last Vital Signs Temp 36.6 C 10/01/16 06:00 Pulse 70 10/01/16 06:00 Resp 20 10/01/16 06:00 BP 141/66 10/01/16 06:00 Pulse Ox 97 10/01/16 06:00 - Exam Constitutional: Present: Alert, Oriented x3, Cooperative, No distress, Obese ENT Exam: Present: hearing grossly normal, moist mucous membranes, other - Edentulous Respiratory: Present: lungs clear, normal breath sounds, no respiratory distress , no accessory muscle use Cardiovascular/Chest: Present: regular rate, rhythm, no edema, no murmur Abdomen: Present: soft, nontender, nondistended Extremity: Present: normal inspection - except left UE, no pedal edema, no calf tenderness Neurologic: Present: no motor/sensory deficits, alert, oriented x 3 Appearance: Present: appropriate appearance, no memory impairment Eye contact: Present: cooperative Thoughts: Present: normal thought pattern, no apparent hallucination Assessment/Plan Plan Narrative: IMPRESSION & PLAN: Sepsis secondary to left forearm surgical site infection -Admit to [facility], inpatient status -Hypotension and tachycardia on admission were secondary to sepsis and have since resolved. -Discontinue IV vancomycin and IV Zosyn. Transition to oral antibiotics - start Keflex 500mg PO BID and continue for 10 days. -Tylenol for fevers -Benadryl for generalized itching -No active drainage at the surgical site at this time. Order placed for a wound culture and I discussed with the patients nurse that if there is any drainage noted to please have this sent to lab for culture. -Blood cultures X 2 NGTD -Case discussed with Jenn Schafer from [facility]. Unfortunately, Dr. Romero is out of the country and therefore they are not doing any inpatient consults at this time. -If patient fails to improve with plan as above, I will get a CT of her left upper extremity for evaluation of possible abscess. -UA completed in the emergency department is contaminated as evidenced by 10- 25 epithelial cells. Lab was called and instructed that there is no urine culture necessary. Acute kidney injury - Resolved -Secondary to sepsis Hyperlactatemia -Resolved -Secondary to hypoperfusion due to sepsis CHRONIC MEDICAL CONDITIONS: Essential hypertension: Patient hypotensive and in ANDERSON on admission and therefore her lisinopril was held. She is now having elevated BPs so I will have the patient resume her home Lisinopril today. Hyperlipidemia: Continue home simvastatin. VTE PROPHYLAXIS: Patient treated with heparin (due to ANDERSON) on admission and once ANDERSON resolved the patient was transitioned to lovenox on 09/30/2016, compression stockings CODE STATUS: Full code DISPOSITION: Switch to PO antibiotics today (10/01/2016) and monitor clinical course. Potential discharge tomorrow (10/02/2016). - Problems/Diagnosis (1) Sepsis due to cellulitis Problem: Acute (2) Superficial incisional surgical site infection Problem: Acute (3) Deep incisional surgical site infection Problem: Suspected (4) Acute kidney injury Problem: Resolved (5) Essential hypertension Problem: Chronic (6) Hyperlipidemia Problem: Chronic
[2016-10-01] MEDS: LACTOBACILLUS ACIDOPHILUS 100 CAP BTL PO SCH ×2 (08:18→20:24)
[2016-10-01] MEDS: CEPHALEXIN MONOHYDRATE 500 MG CAPSULE PO SCH ×2 (08:18→20:24)
[2016-10-01] MEDS: LISINOPRIL 20 MG TABLET PO SCH (08:19)
[2016-10-01] MEDS: ENOXAPARIN SODIUM 40 MG/0.4 ML SYRG SC SCH (08:20)
[2016-10-01] MEDS ORDERED: VANCOMYCIN HCL LEVEL XX ONE (09:00)
[2016-10-01 09:07] LABS: Hematocrit 29.2 % (37.0-47.0); Hemoglobin 10.2 gm/dL (12.5-16.0); Mean Corpuscular Hemoglobin 30.7 pg (27-31); Mean Corpuscular Hgb Conc 34.9 g/dl (32-36); Mean Platelet Volume 9.2 fl (6.0-9.5); Neutrophil # 4.8 K/mm3 (1.3-6.0); Neutrophil % 52.9 % (42-75.0); Platelet Count 155 K/mm3 (150-450); Red Blood Count 3.32 M/mm3 (4.2-5.4); Red Cell Distribution Width 13.6 % (11.5-14.0); White Blood Count 9.1 K/mm3 (4.0-10.5)
[2016-10-01 09:16] LABS: BUN/Creatinine Ratio 10.6 (9.0-21.6); Calcium * 7.9 mg/dL (7.9-10.9); Carbon Dioxide 24.1 mmol/L (24-32.6); Estimated Creat Clear 63.3; Potassium 4.1 mmol/L (3.4-4.6)
[2016-10-01] MEDS: SIMVASTATIN 20 MG TABLET PO SCH (20:24)
[2016-10-02 05:25] LABS: Hematocrit 28.6 % (37.0-47.0); Mean Cell Volume 87.2 fl (78-100); Mean Corpuscular Hemoglobin 30.5 pg (27-31); Mean Platelet Volume 9.3 fl (6.0-9.5); Platelet Count 169 K/mm3 (150-450); Red Blood Count 3.28 M/mm3 (4.2-5.4); Red Cell Distribution Width 13.3 % (11.5-14.0)
[2016-10-02 05:37] LABS: Anion Gap 12.1 mmol/L (6.8-13.8); BUN/Creatinine Ratio 11.8 (9.0-21.6); Calcium * 8.2 mg/dL (7.9-10.9); Carbon Dioxide 24.7 mmol/L (24-32.6); Estimated Creat Clear 70.8; Potassium 3.8 mmol/L (3.4-4.6)
[2016-10-02 06:17] VITALS: BP 158/78
[2016-10-02] MEDS: ENOXAPARIN SODIUM 40 MG/0.4 ML SYRG SC SCH (08:29)
[2016-10-02] MEDS: LISINOPRIL 20 MG TABLET PO SCH (08:29)
[2016-10-02] MEDS: CEPHALEXIN MONOHYDRATE 500 MG CAPSULE PO SCH (08:29)
[2016-10-02] MEDS: LACTOBACILLUS ACIDOPHILUS 100 CAP BTL PO SCH (08:29)
--- NOTE | 2016-10-02 08:41 | DS ---
(1) Superficial incisional surgical site infection Problem: Acute Qualifiers: Encounter type: initial encounter Qualified Code(s): T81.4XXA - Infection following a procedure, initial encounter (2) Sepsis due to cellulitis Problem: Resolved (3) Deep incisional surgical site infection Problem: Suspected Qualifiers: Encounter type: initial encounter Qualified Code(s): T81.4XXA - Infection following a procedure, initial encounter (4) Acute kidney injury Problem: Resolved (5) Essential hypertension Problem: Chronic (6) Hyperlipidemia Problem: Chronic Description of Stay: ADMISSION DATE: 09/28/2016 DISCHARGE DATE: 10/02/2016 ADMISSION HPI: The patient is a 61-year-old female who presents to the [facility] emergency department with a chief complaint of fever and states that her temperature was 105F this morning prior to coming to the emergency department. The emergency department physician called me to admit the patient for "sepsis with an unknown source" and stated that she did not feel the patient's presentation was at all related to her recent skin cancer removal from her left forearm. However, within seconds of interviewing the patient and her family, it was quite obvious that the patient has sepsis secondary to a left upper extremity surgical site infection. The patient had excision of a skin cancer from her left forearm on 09/19/2015 by [facility]. The patient is unsure what type of skin cancer it was. The patient had a postoperative follow-up appointment with Jenn Schafer on 09/22/2016. The patient states that at that visit there was concern for infection and she was started on Bactrim. The patient had another postoperative follow-up appointment with Jenn Schafer yesterday on 09/27/2016 and at that point in time she was given a prescription for Keflex and instructed to continue taking the Bactrim along with the new prescription for Keflex. The patient states she had not yet picked up Keflex and thus has not taken any doses of this medication. She has however remained on Bactrim. The patient states that since surgery she has had intermittent and varying degrees of redness as well as drainage from the surgical site. Despite being on oral antibiotics, the patient states she started having fevers approximately 2 days ago and then when her temperature reached 105F this morning she decided to come to the emergency department for further evaluation. PROBLEM BASED HOSPITAL COURSE: Sepsis secondary to left forearm surgical site infection -Patient admitted to [facility], inpatient status -Hypotension and tachycardia on admission were secondary to sepsis and have since resolved. -Patient was treated with IV vancomycin and IV Zosyn during the majority of her inpatient stay. She was transitioned to oral antibiotics on 10/01/2016- Keflex 500mg PO BID and continue for 10 days. -Patient treated with Tylenol for fevers. She was afebrile the day of discharge. -She was given Benadryl for generalized itching which had nearly completely resolved by the time of discharge. -No active drainage at the surgical site during her admission and thus we were unable to obtain any wound cultures.. -Blood cultures X 2 NGTD -Case discussed with Jenn Schafer from [facility]. Unfortunately, Dr. Romero [place] the [place] and therefore they are not doing any inpatient consults at this time. -If patient fails to continue to improve after discharge, consider getting a CT of her left upper extremity for evaluation of possible abscess or other source of a deeper infection. -UA completed in the emergency department was contaminated as evidenced by 10 -25 epithelial cells. Lab was called and instructed that there is no urine culture necessary. -Patient had an appointment with [facility] the morning of discharge for suture removal. Since she was still in the hospital, her sutures in her left forearm were removed prior to discharge. Acute kidney injury - Resolved -Secondary to sepsis Hyperlactatemia -Resolved -Secondary to hypoperfusion due to sepsis CHRONIC MEDICAL CONDITIONS: Essential hypertension: Patient hypotensive and in ANDERSON on admission and therefore her lisinopril was held. She is now having elevated BPs so I will have the patient resume her home Lisinopril today. Hyperlipidemia: Continue home simvastatin. VTE PROPHYLAXIS: Patient treated with heparin (due to ANDERSON) on admission and once ANDERSON resolved the patient was transitioned to lovenox on 09/30/2016, compression stockings CODE STATUS: Full code FOLLOW-UP APPOINTMENTS: -PCP, Dr. Almanzar, within 1 week -[facility] within 1 week NEW OR CHANGED MEDICATIONS: -Keflex 500mg PO Q12H X 10 days (#20) -Probiotic DISCONTINUED MEDICATIONS: None RADIOLOGY REPORTS: Chest x-ray on 09/28/2016: No acute pulmonary findings. Procedures Performed: none Discharge Disposition: Home self care Disposition: Home self-care Condition: Stable Discharge Activity: Activity as tolerated Discharge Diet: General/regular food, Resume usual diet Referrals: Letty Almanzar MD [Primary Care Provider] - Problem Oriented Discharge Instructions to Patient/Family: Sepsis, Adult, Cellulitis, Adult, [id number] Additional Patient Instructions (free text): Follow-up with PCP within [address] Almanzar 10/09 at 10:15. Follow-up with [facility] within 1 week 10/11 at 2:00 at [facility] office. Prescriptions (Any new or edited meds): Cephalexin Monohydrate [Keflex] 500 mg PO Q12H #20 capsule Lactobacillus Acidophilus [Bacid] 1 cap PO BID #40 btl Complete Home Medications List: Complete Home Medication List: Simvastatin [Zocor] 20 mg PO HS 03/06/15 Lisinopril [Prinivil] 20 mg PO DAILY 09/28/16 Cephalexin Monohydrate [Keflex] 500 mg PO Q12H #20 capsule 10/02/16 Lactobacillus Acidophilus [Bacid] 1 cap PO BID #40 btl 10/02/16
== END 2016-10-02 10:50 | disposition home or self-care (01) | DRG 862 ==
LOC: ER 11:12 → MS 12:49
PROVIDERS: ADMIT Internal Medicine; ATTEND Internal Medicine
DX: T81.4XXA Infection following a procedure, initial encounter (principal); A41.9 Sepsis, unspecified organism; R65.20 Severe sepsis without septic shock; N17.9 Acute kidney failure, unspecified; L03.114 Cellulitis of left upper limb; Y83.8 Other surgical procedures as the cause of abnormal reaction of the patient, or of later complication, without mention of misadventure at the time of the procedure; C44.609 Unspecified malignant neoplasm of skin of left upper limb, including shoulder; I10 Essential (primary) hypertension; E78.5 Hyperlipidemia, unspecified